=== PATIENT | male | born 1965 | race Caucasian/White ===

== ENCOUNTER 2022-07-04 12:05 | Outpatient (CLI) | payer OTHER, SELFPAY ==
[2022-07-04 12:49] LABS: Alanine Aminotransferase 28 U/L (6-50); Aspartate Amino Transferase 42 U/L (17-59)
== END 2022-07-04 12:06 | disposition home or self-care (01) ==
LOC: ANHLAB 12:08
PROVIDERS: Visit Provider Podiatrist Foot & Ankle Surgery
DX: B35.1 Tinea unguium (principal)
CPT/HCPCS: 36415; 84450; 84460

== ENCOUNTER 2023-11-06 02:26 | Day surgery (SDC) | payer OTHER, SELFPAY ==
[2023-10-15 12:59] VITALS: BMI 43.6
--- NOTE | 2023-11-05 08:47 | SUR.PREOP ---
Patient moved up to the 0900 am due to a last minute cancellation.
[2023-11-06] MEDS: LACTATED RINGERS 1,000 ML 150 ML IV CONT (07:51)
--- NOTE | 2023-11-06 08:35 | PM.HPGS ---
History of Present Illness History of Present Illness Consent: Risks, benefits, and alternatives have been discussed and questions answered. Patient agrees to proceed with procedure. Chief complaint: GERD without esophagitis, dysphagia unspecified Narrative: Chad Tanner is a 58 year old male with gerd and intermittent dysphagia, had egd but years ago, he is not taking any medication. Review of Systems Review of Systems: All systems reviewed & are unremarkable except as noted in HPI and below PMFSH Past Medical History Medical History (Updated 09/25/23 @ 12:19 by Teja Santos MD) Chronic nonallergic rhinitis Chronic pain of right knee Colon cancer screening Dysphagia Encounter for prostate cancer screening Encounter for wellness examination in adult GERD (gastroesophageal reflux disease) Hypersomnia Morbid obesity with BMI of 40.0-44.9, adult Tobacco use disorder, continuous puffs on pipe 3 times daily Family History Family History Father Hypertension Heart disease Mother Hypertension Social History Social History Years smoked: 7 Smoking status: Current every day smoker Tobacco type: pipe Additional smoking assessment comments: SMOKES PIPE DAILY NOW, PREVIOUSLY SMOKED CIGARETTES/WEED Alcohol intake: never Alcohol use details: very rare Substance use: never Substance use type: does not use Other substance usage details: HX OF SMOKING WEED UNTIL 30's Additional living arrangements comments: PT DECLINES TO ANSWER Spiritual care concerns: No Meds Home Medications and Allergies Home Medications Medication Instructions Recorded Confirmed Type No Home Medications 10/15/23 11/06/23 History Allergies Allergy/AdvReac Type Severity Reaction Status Date / Time No Known Allergies Allergy Verified 11/06/23 07:40 Exam Const: General: comfortable, no acute distress and obese HENMT: Face/Nose/Sinus: Normal nares present Eyes: General: appearance normal, both eyes and all related structures Neck: Neck: no JVD Resp: Auscultation: clear to auscultation bilaterally Cardio: Rate: regular rate Rhythm: regular rhythm GI: Inspection: non-distended GI Palp: Yes Soft to palpation Skin: General skin exam: normal color Neuro: General: gait normal Speech: normal speech Extrem: General: normal to inspection Psych: Mental Status: mental status grossly normal Assessment and Plan Assessment and plan (1) GERD (gastroesophageal reflux disease): Qualifiers: Esophagitis presence: esophagitis presence not specified Qualified Code(s): K21.9 - Gastro-esophageal reflux disease without esophagitis Code(s): K21.9 - Gastro-esophageal reflux disease without esophagitis Status: Acute Assessment and Plan: egd with bx (2) Dysphagia: Qualifiers: Dysphagia type: esophageal phase Qualified Code(s): R13.19 - Other dysphagia Code(s): R13.10 - Dysphagia, unspecified Status: Acute
--- NOTE | 2023-11-06 08:38 | P.PNAN_ITS ---
Anes - Initial Pre Proc Eval Procedure: Operation Date: 11/06/23 09:00 Proposed Procedures p Esophagogastroduodenoscopy - Shamar Morales MD Date/Time: 11/06/23 08:38 Surgeon: Shamar Morales MD Pre Op Diagnosis: GERD without esophagitis, dysphagia unspecified Patient Data Age: 58 Gender: M Height: 1.83 m Weight: 142.6 kg Allergies Allergy/AdvReac Type Severity Reaction Status Date / Time No Known Allergies Allergy Verified 11/06/23 07:40 Home Medications Medication Instructions Recorded Confirmed Type No Home Medications 10/15/23 11/06/23 History Patient hx anesthesia problems: none Family hx anesthesia problems: none Results Review: All pre-operative results and documents have been reviewed as part of the pre- operative evaluation. [facility] Past Medical History Medical History Chronic nonallergic rhinitis Chronic pain of right knee Colon cancer screening Dysphagia Encounter for prostate cancer screening Encounter for wellness examination in adult GERD (gastroesophageal reflux disease) Hypersomnia Morbid obesity with BMI of 40.0-44.9, adult Tobacco use disorder, continuous puffs on pipe 3 times daily Family History Family History Father Hypertension Heart disease Mother Hypertension Social History Social History Years smoked: 7 Smoking status: Current every day smoker Tobacco type: pipe Additional smoking assessment comments: SMOKES PIPE DAILY NOW, PREVIOUSLY SMOKED CIGARETTES/WEED Alcohol intake: never Alcohol use details: very rare Substance use: never Substance use type: does not use Other substance usage details: HX OF SMOKING WEED UNTIL 30's Additional living arrangements comments: PT DECLINES TO ANSWER Spiritual care concerns: No Anes - Eval Final PreProcedure Day of Procedure 11/06/23 08:38 Patient weight: morbidly obese Heart: regular rate and rhythm Lungs: decreased breath sounds Airway: Mallampati scale class II Neurological: alert and oriented Last oral intake: >/= 8 hours ASA classification: III Emergent: no Anesthetic plan: proceed Anesthesia type and monitoring: general GIVS and standard monitoring Results Review: All pre-operative results and documents have been reviewed as part of the pre- operative evaluation. Informed Consent: The patient's anesthetic plan and its attendant risks and benefits were discussed with the patient/family/POA. Questions were solicited and answers provided to the satisfaction of the patient/family/POA.
[2023-11-06 08:52] VITALS: BP 147/88; PULSE 91; RESP 21; O2SAT 97
[2023-11-06 09:02] VITALS: BP 156/100; PULSE 88; RESP 22; O2SAT 98
[2023-11-06 09:12] VITALS: BP 145/106; PULSE 93; RESP 22; O2SAT 95
== END 2023-11-06 09:20 | disposition home or self-care (01) ==
PROVIDERS: PCP Family Medicine; Visit Provider Internal Medicine Gastroenterology
PROC: 0DJ08ZZ Inspection of Upper Intestinal Tract, Via Natural or Artificial Opening Endoscopic (ICD-10-PCS; CPT 43235; principal; 2023-11-06 09:00)
DX: K21.00 Gastro-esophageal reflux disease with esophagitis, without bleeding (principal); K22.2 Esophageal obstruction; K44.9 Diaphragmatic hernia without obstruction or gangrene; J31.0 Chronic rhinitis; G89.29 Other chronic pain; M25.561 Pain in right knee; G47.10 Hypersomnia, unspecified; F17.210 Nicotine dependence, cigarettes, uncomplicated; E66.01 Morbid (severe) obesity due to excess calories; Z68.41 Body mass index [BMI] 40.0-44.9, adult; Z82.49 Family history of ischemic heart disease and other diseases of the circulatory system
CPT/HCPCS: 43239; 43249; 88305; C1726; J2704; J7120